=== PATIENT | female | born 1995 | race African-American/Black ===

== ENCOUNTER 2018-12-14 15:30 | Emergency (ER) | payer SELFPAY ==
[~2018-12-14] VITALS: Ht 167.6 cm; Wt 136.0 kg
[2018-12-14] MEDS ORDERED: ALBUTEROL (0.083%) 2.5MG/3ML NEB HHN STA (16:29)
[2018-12-14] MEDS ORDERED: DIPHENHYDRAMINE 25MG CAPSULE PO ONE (16:30)
[2018-12-14] MEDS ORDERED: PREDNISONE 20MG TABLET PO ONE (16:45)
[2018-12-14 18:18] VITALS: BP 131/84
== END 2018-12-14 18:27 | disposition home or self-care (01) ==
LOC: ER 15:30
DX: T78.40XA Allergy, unspecified, initial encounter (principal); J45.909 Unspecified asthma, uncomplicated; X58.XXXA Exposure to other specified factors, initial encounter
CPT/HCPCS: 71045; 94640; 99283; J7512; J7611; Q0163; Z7610

== ENCOUNTER 2018-12-29 21:07 | Emergency (ER) | payer SELFPAY ==
[~2018-12-29] VITALS: Ht 165.1 cm; Wt 148.0 kg
[2018-12-30 00:43] LABS: CLARITY URINE CLOUDY (CLEAR); COLOR URINE YELLOW (YELLOW); KETONES URINE TRACE (NEGATIVE); LEUKOCYTE ESTERASE URINE 1+ (NEGATIVE); NITRITE URINE NEGATIVE (NEGATIVE); OCCULT BLOOD URINE 1+ (NEGATIVE); PH URINE 5.5 (4.5-8.0); PROTEIN URINE NEGATIVE (NEGATIVE); SPECIFIC GRAVITY URINE 1.022 (1.005-1.030)
[2018-12-30] MEDS ORDERED: NITROFURANTOIN 100MG M/M CAPSULE PO SCH (01:30)
[2018-12-30 02:13] VITALS: BP 132/76
== END 2018-12-30 06:08 | disposition home or self-care (01) ==
LOC: ER 21:07
DX: N39.0 Urinary tract infection, site not specified (principal); J02.8 Acute pharyngitis due to other specified organisms; F12.10 Cannabis abuse, uncomplicated; J45.909 Unspecified asthma, uncomplicated; F17.210 Nicotine dependence, cigarettes, uncomplicated
CPT/HCPCS: 71045; 81003; 81025; 87804; 99284

== ENCOUNTER 2021-02-18 23:26 | Emergency (ER) | payer OTHER ==
[~2021-02-18] VITALS: Ht 162.6 cm; Wt 141.0 kg
[2021-02-18 23:56] VITALS: BP 145/76
[2021-02-19] MEDS ORDERED: ALBU6.7H9 INH (08:55)
[2021-02-19] MEDS ORDERED: ACET-2708 MT (08:55)
[2021-02-19] MEDS ORDERED: NAPR-1176 MT (08:55)
== END 2021-02-19 00:53 | disposition left against medical advice (07) ==
LOC: ER 23:26
DX: Z53.21 Procedure and treatment not carried out due to patient leaving prior to being seen by health care provider (principal)

== ENCOUNTER 2021-02-19 04:51 | Emergency (ER) | payer OTHER ==
[~2021-02-19] VITALS: Ht 162.6 cm; Wt 141.0 kg
[2021-02-19 05:05] VITALS: BP 176/112
[2021-02-19] MEDS ORDERED: ACETAMINOPHEN 325MG TABLET PO STA (05:30)
[2021-02-19] MEDS ORDERED: KETOROLAC 60MG/2ML VIAL IM STA (05:30)
[2021-02-19 06:12] LABS: BASOPHILS % 0.5 % (0.0-2.0); EOSINOPHILS % 3.9 % (0.0-5.0); HEMATOCRIT. 38.7 % (36.0-48.0); HEMOGLOBIN. 13.1 g/dL (12.0-16.0); MEAN CORPUSCULAR HEMOGLOBIN 29.8 pg (28.0-32.0); MEAN CORPUSCULAR VOLUME 87.7 fL (81.0-99.0); MEAN PLATELET VOLUME 8.3 fl (7.4-10.4); NEUTROPHILS % 48.6 % (40.0-76.0); PLATELET 287 x1000/uL (130-400); RED BLOOD CELL COUNT 4.42 mill/uL (4.2-5.4); RED CELL DISTRIBUTION WIDTH 13.4 % (11.6-14.6)
[2021-02-19 06:14] LABS: CHLORIDE 108 mEq/L (98-107)
[2021-02-19 07:06] LABS: HCG SCREEN NEGATIVE
[2021-02-19] MEDS ORDERED: ACET-2708 MT (08:55)
[2021-02-19] MEDS ORDERED: NAPR-1176 MT (08:55)
[2021-02-19] MEDS ORDERED: ALBU6.7H9 INH (08:55)
== END 2021-02-19 08:59 | disposition home or self-care (01) ==
LOC: ER 05:39
DX: B34.9 Viral infection, unspecified (principal); R06.09 Other forms of dyspnea; J45.909 Unspecified asthma, uncomplicated; F12.10 Cannabis abuse, uncomplicated; E66.9 Obesity, unspecified; Z68.43 Body mass index [BMI] 50.0-59.9, adult
CPT/HCPCS: 36415; 71045; 80048; 84703; 85025; 96372; 99284; J1885

== ENCOUNTER 2022-01-05 00:28 | Emergency (ER) | payer OTHER ==
[~2022-01-05] VITALS: Ht 165.1 cm; Wt 134.0 kg
[~2022-01-05 00:28] MED LIST: ACET-2708 MT; ALBU6.7H9 INH; NAPR-1176 MT
[2022-01-05] MEDS ORDERED: AMOX1TAB16 MT (02:52)
[2022-01-05] MEDS: VISCOUS LIDOCAINE 2% 15 ML UDC MM STA (02:52)
[2022-01-05] MEDS: AMOXICILLIN/POTASSIUM CLAVULANATE 875/125MG TAB PO ONE (03:00)
[2022-01-05 03:30] VITALS: BP 112/56
== END 2022-01-05 03:31 | disposition home or self-care (01) ==
LOC: ER 00:28
DX: K04.7 Periapical abscess without sinus (principal); F12.10 Cannabis abuse, uncomplicated; J45.909 Unspecified asthma, uncomplicated
CPT/HCPCS: 81025; 99283